=== PATIENT | female | born 1985 | race Caucasian/White ===

== ENCOUNTER 2020-03-04 05:30 | Inpatient (IN) | payer OTHER, SELFPAY ==
[2020-03-04 06:29] VITALS: BMI 33.8
[2020-03-04] MEDS: Lactated Ringers 1,000 ML 50 ML IV (06:55)
[2020-03-04 06:56] LABS: Absolute Lymphocyte Count 1.75 X10^3/uL (0.83-4.51); Absolute Neutrophil Count 8.7 X10^3/uL (2.0-7.7); Basophil# 0.04 X10^3/uL; Basophil% 0.3 % (0-1); Eosinophil# 0.13 X10^3/uL; Eosinophils% 1.1 % (0-5); Hematocrit 36.6 % (37-47); Hemoglobin 11.9 g/dL (12.0-15.0); Lymphocyte # 1.75 X10^3/ul (4.0); Lymphocyte % 14.8 % (19-41); Mean Corp Hgb Conc 32.5 g/dL (32-36); Mean Corpuscular Hgb 31.2 pg (27.0-32.0); Mean Corpuscular Volume 95.8 fL (81-99); Mean Platelet Vol. 10.4 fl (6.2-12.0); Monocyte# 1.15 X10^3/uL; Monocyte% 9.7 % (0-10); NRBC Flagged by Analyzer 0 % (0-5); Neutrophil # 8.66 X10^3/uL (2.7-7.7); Neutrophil % 73.4 % (47-70); Platelet Count 264 K/mm3 (150-450); RBC Distribution Width CV 13.1 % (11.6-14.6); RBC Distribution Width SD 44.8 fl (35.1-43.9); Red Blood Count 3.82 M/mm3 (4.2-5.4); White Blood Count 11.8 K/mm3 (4.4-11.0)
[2020-03-04] MEDS: Oxytocin 30 units/NS 500 ml 30 UNITS/500 ML IV.SOLN IV (07:56)
[2020-03-04 08:02] LABS: Probe Check PASS; Specimen Processing Control PASS
[2020-03-04] MEDS: Lactated Ringers 500 ML 999 ML IV (09:12)
[2020-03-04] MEDS: fentaNYL-bupivacaine (epidural) 100 ML BAG EPIDURAL (09:30)
[2020-03-04] MEDS: Oxytocin 30 units/NS 500 ml 30 UNITS/500 ML IV.SOLN 334 UNITS IV (12:45)
--- NOTE | 2020-03-04 13:32 | PCM.HP.OB ---
History Date of Admission: 03/04/20 Final HEBERT: 02/27/20 Gestational age: 40 Weeks and 6 Days History of this : This is a 34 year-old, G [], P [], at 40 weeks gestational age. Allergies No Known Allergies Allergy (Verified 03/04/20 06:32) Smoking Status: Never smoker Alcohol: None Number of Fetus(es): 1 History Past Pregnancies: Past Pregnancies Delivery Date Name GA/ Weeks Outcome Route Wt Infant Sex Labor Length Anesthesia Delivery Location Provider FOB Labs: See [facility] H&P Physical Exam General: Alert, Oriented x3 Abdomen: Soft, Non Tender, Non-Distended, Gravid Estimated gestational size: Appropriate for gestational size Presentation: Cephalic Cervix Dilation (cm): 9 - AROM thin meconium fluid Station: 0 - 100 Assessment/Plan This is a 34 year-old, G2, P1, at 40&6 weeks gestational age. Admit to L&D Early labor - augmenting with pitocin GBS positive - pcn per protocol COVID negative Pain - epidural EFW less than 4500g, patient with adequate pelvis Routine care
--- NOTE | 2020-03-04 13:37 | PCM.OPRPT ---
Vaginal Delivery Maternal Presentation: Active Labor Method of Induction: Pitocin - augmentation Amniotic Membrane Rupture Type: Artificial Amniotic Fluid Description: Lightly stained meconium Final HEBERT: 02/27/20 Gestational age: 40 Weeks and 6 Days Date of Procedure: 03/04/20 Pre-Operative Diagnosis: (1) Labor (2) Post dates Post-Operative Diagnosis: Same Surgery/ Procedure Performed: Spontaneous Vaginal Delivery Type of Anesthesia: Epidural Description of Procedure: Patient prepped & draped in stirrups when C/C/+2. She pushed to deliver the head. Shoulders & body easily followed. Infant placed on maternal abdomen where 3VC clamped & cut in delayed fashion. Placenta delivered with gentle traction & good uterine tone obtained. Presentation: Vertex - direct OA Placental Delivery Description: Expressed Placenta Disposition: [facility] Cord Vessel Description: 3 Vessels Cord Entanglement: None Estimated Blood Loss: 350ml Infant A gender: Male - Lucio (1 minute): 8 (5 minute): 9 Episiotomy Description: None Laceration: 1st degree - bilateral vaginal - repaired with 3-0 vicryl Medications given after delivery: IV Pitocin Complications: None
[2020-03-04 16:43] VITALS: BP 104/54; PULSE 86; RESP 18; TEMP 37.2
[2020-03-04 20:17] VITALS: BP 96/52; PULSE 81; RESP 16; TEMP 36.9
[2020-03-04] MEDS: Ibuprofen 600 MG Tablet PO (21:01)
[2020-03-04 23:25] VITALS: BP 115/60; PULSE 66; RESP 16; TEMP 36.8
[2020-03-05 03:26] VITALS: BP 97/49; PULSE 66; RESP 14; TEMP 36.8
[2020-03-05] MEDS: Ibuprofen 600 MG Tablet PO (06:29)
--- NOTE | 2020-03-05 08:11 | PCM.PN.OB ---
Subjective: Patient seen at bedside. Reports feeling good. Pain controlled with Motrin. Lochia decreased. Passing flatus and voiding without difficulty. going well. Requests discharge home today. - Physical Exam Vitals/I&O's: Vital Signs Temp Pulse Resp BP 98.2 F 66 14 97/49 L 03/05/20 03:26 03/05/20 03:26 03/05/20 03:26 03/05/20 03:26 Oxygen Delivery Method Room Air Weight: 191 lb Body Mass Index (BMI) 33.8 Intake and Output for Last 24 Hours 03/03/20 03/04/20 03/05/20 23:59 23:59 23:59 Intake Total 1767.71 / 1767.71 Output Total 900 / 900 Balance 867.71 / 867.71 General: Alert, Oriented x3 Lungs: Normal air movement Cardiovascular: Regular rate Abdomen: Soft, Non Tender Skin: No rashes Musculoskeletal: No Tenderness to Palpation of Joints or Extremities Neurological: Cranial nerves II-XII grossly intact Psych/Mental Status: Normal Affect, Appropriate Laboratory Results 03/04/20 06:30: Blood Type AB POSITIVE, Antibody Screen NEGATIVE Current Medications Acetaminophen (Tylenol) 1,000 mg PO Q8H PRN PRN PRN Reason: Pain Score 1-3/10 Bisacodyl (Dulcolax) 10 mg RECTAL UD PRN PRN Reason: If no BM Dibucaine (Dibucaine) 1 applic TOPICAL TID PRN PRN; Protocol PRN Reason: Discomfort Hydrocortisone (Hytone) 1 applic TOPICAL TID PRN PRN; Protocol PRN Reason: Discomfort Ibuprofen (Motrin) 600 mg PO Q6H PRN PRN PRN Reason: Pain Score 1-3/10 Last Admin: 03/05/20 06:29 Dose: 600 mg Documented by: Methylergonovine Maleate (Methergine) 0.2 mg IM X1 PRN PRN Reason: Excess bleeding/uterine atony Ondansetron HCl (Zofran) 4 mg IV Q4H PRN PRN PRN Reason: Nausea Oxycodone HCl (Oxyir) 5 - 10 mg PO Q4H PRN PRN PRN Reason: Pain Score 4-10/10 Senna/Docusate Sodium (Senokot-S, Jaja-Colace) 1 - 2 tablet PO DAILY PRN PRN PRN Reason: Constipation Simethicone (Mylicon) 80 mg PO PCHS PRN PRN Reason: Indigestion/Stomach pain Sodium Chloride () 5 - 15 ml IV UD PRN PRN Reason: SALINE FLUSH Medical Necessity - Tobacco Use Smoking Status: Never smoker Assessment/Plan PPD #1 routine care pain management discharge home today follow up in office 2 weeks or PRN
--- NOTE | 2020-03-05 08:13 | DCINST_ITS ---
Discharge Diet: No Restrictions Discharge Activity: Return to Normal Activity May resume sexual activity in: 6-8 weeks Additional Instructions: If you experience any of the following, contact your healthcare provider. * Bleeding that soaks a pad every hour for 2 hours * Fever 100.4 or higher * Unrelieved incision or abdominal pain * Swelling, redness, discharge or bleeding from your incision or episiotomy site * Your incision begins to separate * Problems urinating (including inability to urinate or burning while urinating). * Visual changes * Severe headache * Flu-like symptoms * Pain or redness in one of both of your breasts * Pain, warmth, tenderness or swelling in your legs, especially the calf area * Frequent nausea and vomiting * Symptoms of depression or anxiety If you experience any of the following, call 911 or go to the nearest Emergency Room. * Chest pain * Problems breathing * Seizure activity * Partial or complete paralysis of a body part, slurred speech, weakness or drooping of the face, or a sudden inability to walk or hold your balance Allergies/Adverse Reactions: Allergies No Known Allergies Allergy (Verified 03/04/20 06:32) Please Follow Up With: Bre Roberson MD When: 2 weeks virtual visit/ 6 weeks in office Primary Care Physician: Care Physician,No Primary [Primary Care Provider] - Test Results: Test results from this visit will be discussed in further detail at your follow- up appointment, if applicable. Proposed Discharge Date: 03/05/20
--- NOTE | 2020-03-05 08:13 | PCM.DCVAG ---
Discharge Diet: No Restrictions Discharge Activity: Return to Normal Activity May resume sexual activity in: 6-8 weeks Additional Instructions: If you experience any of the following, contact your healthcare provider. Bleeding that soaks a pad every hour for 2 hours Fever 100.4 or higher Unrelieved incision or abdominal pain Swelling, redness, discharge or bleeding from your incision or episiotomy site Your incision begins to separate Problems urinating (including inability to urinate or burning while urinating). Visual changes Severe headache Flu-like symptoms Pain or redness in one of both of your breasts Pain, warmth, tenderness or swelling in your legs, especially the calf area Frequent nausea and vomiting Symptoms of depression or anxiety If you experience any of the following, call 911 or go to the nearest Emergency Room. Chest pain Problems breathing Seizure activity Partial or complete paralysis of a body part, slurred speech, weakness or drooping of the face, or a sudden inability to walk or hold your balance Allergies/Adverse Reactions: Allergies No Known Allergies Allergy (Verified 03/04/20 06:32) Please Follow Up With: Bre Roberson MD When: 2 weeks virtual visit/ 6 weeks in office Primary Care Physician: Care Physician,No Primary [Primary Care Provider] - Test Results: Test results from this visit will be discussed in further detail at your follow-up appointment, if applicable. Proposed Discharge Date: 03/05/20
[2020-03-05 09:20] VITALS: BP 107/51; PULSE 66; RESP 16; TEMP 36.6
[2020-03-05 13:51] VITALS: BP 111/69; PULSE 79; RESP 16; TEMP 36.8
== END 2020-03-05 15:30 | disposition home or self-care (01) | DRG 806 ==
PROVIDERS: Admitting Provider Obstetrics & Gynecology; Visit Provider Obstetrics & Gynecology
DX: O48.0 Post-term pregnancy (principal); O98.82 Other maternal infectious and parasitic diseases complicating childbirth; Z37.0 Single live birth; B95.1 Streptococcus, group B, as the cause of diseases classified elsewhere; O99.824 Streptococcus B carrier state complicating childbirth; O70.0 First degree perineal laceration during delivery; Z3A.40 40 weeks gestation of pregnancy
CPT/HCPCS: 59025; 59050; 85025; 86850; 86900; 86901; 87635; 99218; G2023; J7120; G0378; U0003

== ENCOUNTER → 2024-12-28 | Outpatient (CLI) | payer MEDICAID, SELFPAY ==
--- NOTE | 2024-12-28 10:00 | RAD_ITS ---
PROCEDURE: CERV SPINE 4 OR 5 VIEWS 12/28/2024 REASON FOR EXAM: STRAIN TECHNIQUE: 5 views of the cervical spine. FINDINGS: Vertebrae: Well-maintained. Mild endplate changes are noted. disc spaces: Within normal limits. Alignment: Mild straightening. soft tissues: No foreign body seen within the soft tissues. Other: RAD/Cerv Spine 4 or 5 Views IMPRESSION: No evidence of fracture or dislocation. No significant osteoarthritis. Reading Location: [facility]
== END | disposition home or self-care (01) ==
LOC: RAD 09:50
PROVIDERS: Referring Provider Chiropractor; Visit Provider Chiropractor
DX: S16.1XXA Strain of muscle, fascia and tendon at neck level, initial encounter (principal)
CPT/HCPCS: 72050